=== PATIENT | female | born 1975 | race Caucasian/White ===

== ENCOUNTER 2019-12-12 18:56 | Emergency (ER) | payer SELFPAY ==
[~2019-12-12] VITALS: Ht 175.3 cm; Wt 74.5 kg
[2019-12-12 19:00] VITALS: Ht 175.3 cm; Wt 74.5 kg
[2019-12-12] MEDS ORDERED: TORADOL10 MG PO (19:34)
[2019-12-12] MEDS ORDERED: METHOCARBAMOL500 MG PO (19:34)
[2019-12-12 20:19] VITALS: BP 128/90
== END 2019-12-12 20:18 | disposition home or self-care (01) ==
LOC: D.ER 18:56
DX: S16.1XXA Strain of muscle, fascia and tendon at neck level, initial encounter (principal); X58.XXXA Exposure to other specified factors, initial encounter